=== PATIENT | male | born 1955 | race Caucasian/White ===

== ENCOUNTER 2017-06-08 20:02 | Emergency (ER) | payer OTHER ==
[~2017-06-08] VITALS: Ht 182.9 cm; Wt 97.7 kg
[~2017-06-08 20:02] MED LIST: DUTA1CPM PO
[2017-06-08 20:14] VITALS: BP 184/98; PULSE 80; RESP 26; O2SAT 98
[2017-06-08] MEDS ORDERED: 0.9% Sodium Chloride 1,000 ML IV ONE (20:36)
--- NOTE | 2017-06-08 20:36 | ED.REPORT ---
HPI-Abd Pain M 40 and Over Date of Service Jun 08, 2017 ED Provider: Dr. Hinds Pt is a 61 y/o male w/ a hx of kidney stones presenting to the ED with his c/o sudden onset intermittent L flank pain which began at 19:00 today. At 19:30 today he experienced sudden onset of severe left flank pain with associated nausea and vomiting. Pt denies fever, chills. Nursing Notes Stated Complaint: POSS KIDNEY STONE Chief Complaint: Male Abdominal Pain Nursing Notes Reviewed: Yes Allergies: Coded Allergies: No Known Allergies (Verified Allergy, Unknown, 12/31/14) Scheduled Dutasteride/Tamsulosin 0.5-0.4 mg (Zina 0.5-0.4 mg) 1 Each Cpmp.24hr 1 EACH PO DAILY Tamsulosin (Flomax) 0.4 Mg Capsule 0.4 MG PO DAILY Scheduled PRN Hydrocodone-Acetaminophen 5-325 mg (Hydrocodone-Acetaminophen 5-325 mg) 1 Each Tablet 1-2 TABLET PO Q4H PRN PRN For Pain Ondansetron ODT (Zofran ODT) 4 Mg Tablet 4 MG PO Q4H PRN PRN For Nausea General Time Seen by MD: 20:35 Chief Complaint Flank pain left Hx Obtained From: Patient Arrived By: Walk-in Sudden in Onset?: Yes Onset Occurred: 1 - 4 hours ago Symptom Duration: Intermittent Progression since Onset: Intermittent Location: : Flank left Quality: Painful Severity: Current: Mild Severity: Maximum: Severe Recent Healthcare: Previous diagnosis Similar Sx Previous: Yes Past Medical History Past Medical History Nephrolithiasis GERD RA Diverticulosis Past Surgical History None reported Smoking History Never Smoker Social History Alcohol Use: Denies alcohol use Drug Use: Denies drug use Other Social History: Ambulatory Status Independent Review of Systems Constitutional: Denies: Chills, Fever GI: Reports: Nausea, Vomiting, Denies: Abdominal pain Male: Reports Flank pain Complete sys rev & neg: except as marked. Physical Exam Initial Vital Signs Vital Signs (First) Date Time Temp Pulse Resp B/P Pulse Ox O2 Delivery O2 Flow Rate FiO2 06/08/17 20:14 35.3 80 26 184/98 98 Room Air Initial VS: Reviewed, Vital signs abnormal Head / Eyes: Atraumatic, Normocephalic ENT: Mucous membranes moist, Conjunctiva normal, No scleral icterus Neck: Supple, Full range of motion Extremities: Vascular intact, Neuro intact Skin: Warm, Dry, No cyanosis Neurologic: Alert, Oriented, Nonfocal Psychiatric: Mood/affect normal, Behavior normal, Normal thought content General/Constitutional: Awake, Alert, No acute distress, Cooperative, Not toxic appearing Respiratory / Chest: Breath sounds NL, Breath sounds = bilat, No respiratory distress, No rales, No rhonchi, No wheezing Cardiovascular: Heart rate NL, Regular rhythm, Heart sounds NL, No murmurs Abdomen: Atraumatic, Soft, Non-tender, No guarding, No rebound, No distention Back: Full range of motion, Painless range of motion Left-sided CVA tenderness to percussion Interpretation & Diagnostics Lab Results Interpretation Result Diagram: 06/08/17205406/08/172054 Test 06/08/17 20:43 06/08/17 20:55 06/08/17 21:17 Urine Color Yellow (YELLOW) Urine Appearance Hazy (CLEAR,HAZY) Urine pH 6.5 (5.0-8.0) Urine Specific [place] <1.005 (1.003-1.035) Urine Protein Negativemg/dL (NEG,TRACE) Urine Glucose (UA) Negativemg/dL (NEGATIVE) Urine Ketones Negativemg/dL (NEGATIVE) Urine Occult Blood Large (NEGATIVE) Urine Nitrite Negative (NEGATIVE) Urine Bilirubin Negative (NEGATIVE) Urine Urobilinogen Normalmg/dL (NORMAL) Urine Leukocyte Esterase Negative (NEGATIVE) Urine RBC 11-50/hpf (0-2) Urine WBC 0-5/hpf (0-5) Urine Epithelial Cells Occasional/hpf (NONE-MOD) Urine Crystals None seen (NONE SEEN) Urine Bacteria None/hpf (NONE-FEW) Urine Hyaline Casts None/lpf (NONE) Urine Granular Casts None seen (NONE SEEN) Urine Waxy Casts None seen (NONE SEEN) Urine Red Blood Cell Casts None seen (NONE SEEN) Urine White Blood Cell Casts None seen (NONE SEEN) Urine Mucus None seen (None Seen) Urine Trichomonas None seen (NONE SEEN) Urine Yeast None (NONE SEEN) Urinalysis Comment None Urine Culture Reflexed Not indicated White Blood Count 10.8th/mm3 (3.8-10.1) Red Blood Count 5.19mil/mm3 (4.40-5.80) Hemoglobin 15.0g/dL (13.8-17.2) Hematocrit 44.9% (41.0-50.0) Mean Corpuscular Volume 86.5fL (81-100) Mean Corpuscular Hemoglobin 28.9pg (27.0-35.0) Mean Corpuscular Hemoglobin Concent 33.4% (32.0-37.0) Red Cell Distribution Width 13.6% (12.3-15.4) Platelet Count 300bil/L (150-400) Neutrophils (%) (Auto) 76.7% (40-74) Lymphocytes (%) (Auto) 11.3% (14-46) Monocytes (%) (Auto) 8.5% (4-12) Eosinophils (%) (Auto) 2.9% (0-5) Basophils (%) (Auto) 0.2% (0-3) Sodium Level 138mEq/L (134-144) Potassium Level 4.1mEq/L (3.5-5.2) Chloride Level 101mEq/L (97-108) Carbon Dioxide Level 22mmol/L (18-29) Blood Urea Nitrogen 18mg/dL (8-27) Creatinine 0.88mg/dL (0.76-1.27) Estimat Glomerular Filtration Rate 94mL/min (>59) Glucose Level 107mg/dL (60-99) Calcium Level 8.8mg/dL (8.5-10.1) Magnesium Level 1.9mg/dL (1.6-2.6) Total Bilirubin 0.2mg/dL (0.0-1.2) Aspartate Amino Transf (AST/SGOT) 22U/L (0-50) Alanine Aminotransferase (ALT/SGPT) 19U/L (0-44) Alkaline Phosphatase 80U/L (25-160) Total Protein 7.4g/dL (6.4-8.4) Albumin 4.0g/dL (3.4-5.0) Lipase 39U/L (13-60) Lactic Acid Level 1.7mmol/L (0.4-2.0) CT Abd / Pelvis Interpretation KUB study: IMPRESSION: 1. Nephrolithiasis of the left kidney. There is a 4 mm stone near the left UVJ within the bladder, probably a recently passed stone. There is trace left pelviectasis and mild perinephric stranding. 2. Mild concentric thickening in the distal esophagus at the gastroesophageal junction. This finding may be secondary to gastroesophageal reflux. If clinical indicated, upper endoscopy may be obtained for further evaluation. 3. Diverticulosis. No evidence for acute diverticulitis. 4. Enlarged prostate. Dictated by: Ryan Hill M.D. on 06/08/2017 at 20:58 Approved by: Ryan Hill M.D. on 06/08/2017 at 21:06 Study type: Abdominal CT no contrast Interpretation / Wet Read by: Interpret - Radiologist Re-Eval/Medical Decision Med Decision/Clinical Course 61-year-old male with a history of kidney stones presenting with similar symptoms of left flank pain had begun suddenly this evening. His symptoms seemed to improve just after arriving in the emergency department, prior to his CT scan. CT scan demonstrates a 4 mm recently passed kidney stone into the bladder, which explains why his pain has improved. There were several other incidental findings on the CT scan that shows some thickening of the lower esophagus, and enlarged prostate, and diverticulosis. The patient notes that he suffers from GERD but does not take medication. He is unaware of any lower urinary tract symptoms related to his prostate. He was also unaware of diverticulosis. I discussed these briefly with him and he will will establish with a new PCP to help follow up on these chronic findings, as well as to follow up on his acute issue today. Despite the fact the stone was passed I elected to start him on Flomax to aid in passing the stone through the urethra. I also discharged home with a small amount of pain medication to help with any recurrent pain, and some Zofran for nausea. Patient is understanding and in agreement of the plan for follow-up. Time of Eval: 21:39 Re-Evaluation/Progress Note: Pt rechecked. Informed pt of plan for discharge. Pt understands and agrees with plan for discharge. F/U instructions and RTER warnings given. All questions addressed. Counseled Regarding: Diagnosis, Lab results, Need for follow-up, When/why to return to ED Discharge & Departure Primary Impression: Left ureteral calculus Additional Impressions: Esophagitis Diverticulosis Diverticulosis site: unspecified location Diverticulosis bleeding: diverticulosis without bleeding Qualified Code: K57.90 - Diverticulosis of intestine, part unspecified, without perforation or abscess without bleeding Prostate enlargement Leukocytosis Leukocytosis type: unspecified Qualified Code: D72.829 - Elevated white blood cell count, unspecified Elevated blood pressure reading Acute pain Disposition: Home Vital Signs - All Vital Signs Date Time Temp Pulse Resp B/P Pulse Ox O2 Delivery O2 Flow Rate FiO2 06/08/17 22:26 36.4 82 16 151/92 99 Room Air 06/08/17 22:22 82 16 151/92 99 Room Air 06/08/17 20:14 35.3 80 26 184/98 98 Room Air )( All Prior VS Reviewed: Yes Condition: Improved Patient Instructions: Kidney Stones (ED) Additional Instructions: The CT scan showed evidence that you recently passed a 4mm kidney stone from your left ureter. You coincidentally have some esophagus thickening which is sometimes seen in the presence of gastric reflux. You also have diverticulosis which is a benign finding. The prostate was mildly enlarged. The labs were reassuring. The urine showed no sign of infection. Take Flomax as directed. Take Ibuprofen as needed for aching pain. If you experience severe or breakthrough pain you can take hydrocodone 5/325 one to 2 tablets every [address] or consume alcohol while taking hydrocodone. Follow-up with a primary care provider in 1 week for a recheck. Alejandro Byrd will be happy to see you. Return to the emergency department if you experience severe pain, fever, persistent vomiting, or for other concerning symptoms. Referrals: Alejandro Davidson PA-C Scribe Attestation Portions of this note were transcribed by Samuel Lowe. I, Dr. Hinds personally performed the history, physical exam and medical decision-making; I reviewed and confirmed the accuracy of the information in the transcribed note. copies to: Alejandro Davidson PA-C, Gary R DO Jun 08, 2017 20:36 SAMUEL LOWE Jun 08, 2017 20:43
[2017-06-08] MEDS ORDERED: Ondansetron 2 mg/mL 2 mL Inj IVPUSH PRN (20:40)
[2017-06-08] MEDS ORDERED: HYDROmorphone 0.5 mg/0.5 mL iSecure Syringe IVPUSH PRN (20:40)
[2017-06-08 20:59] LABS: APPEARANCE,URINE HAZY (CLEAR,HAZY); COLOR,URINE YELLOW (YELLOW); OCCULT BLOOD,URINE LARGE (NEGATIVE); PH,URINE 6.5 (5.0-8.0); UROBILINOGEN,URINE NORMAL (NORMAL)
[2017-06-08 21:04] LABS: BASOPHILS % (AUTO) 0.2 % (0-3); EOSINOPHILS % (AUTO) 2.9 % (0-5); MONOCYTES % (AUTO) 8.5 % (4-12); Mean Corpuscular Hemoglobin 28.9 pg (27.0-35.0); Mean Corpuscular Volume 86.5 fL (81-100); NEUTROPHILS % (AUTO) 76.7 % (40-74); Platelet Count 300 bil/L (150-400)
--- NOTE | 2017-06-08 21:08 | DRSVH ---
PROCEDURE: CT KUB ([id number]) INDICATIONS: severe abd pain, h/o kidney stones TECHNIQUE: Noncontrast 5 mm thick sections acquired from the diaphragms to the symphysis. 5 mm thick coronal an d sagittal reformats were then performed. For radiation dose reduction, the following was used: aut omated exposure control, adjustment of mA and/or kV according to patient size. COMPARISON: [facility], CT, KUB - CT ([facility] [place] 11/21/2014, 15:32. FINDINGS: Image quality: Excellent. Lung bases: Lung bases are clear. Heart size is normal. There is a small hiatal hernia. Mild concen tric thickening of distal esophagus at the GE junction. Urinary system: There are multiple left renal calculi. The largest stone measures [address] densi ty 489 HU, probably a uric acid stone or struvite stone. There is trace pelviectasis in left kidney a nd mild left perinephric stranding. There is a 4 mm stone within the urinary bladder near the left UV J, probably recently passed stone. Both kidneys are normal in size. Prostate is enlarged. Other solid organs: Liver and spleen are normal in size. Gallbladder is normal. Pancreas is normal in contours. No adrenal nodules. Peritoneum and bowel: Unenhanced bowel loops demonstrate normal wall thickness and caliber. No free fluid or air. Nodes and vessels: No retroperitoneal or mesenteric adenopathy by size criteria. Aorta and inferior vena cava are normal in caliber. Abdominal wall: No ventral hernias. Pelvis: No free pelvic fluid. No inguinal hernias or adenopathy. Bones: No suspicious bony lesions. No vertebral body compression fractures. IMPRESSION: 1. Nephrolithiasis of the left kidney. There is a 4 mm stone near the left UVJ within the bladder, pr obably a recently passed stone. There is trace left pelviectasis and mild perinephric stranding. 2. Mild concentric thickening in the distal esophagus at the gastroesophageal junction. This finding may be secondary to gastroesophageal reflux. If clinical indicated, upper endoscopy may be obtained f or further evaluation. 3. Diverticulosis. No evidence for acute diverticulitis. 4. Enlarged prostate. Dictated by: Ryan Hill M.D. on 06/08/2017 at 20:58 Approved by: Ryan Hill M.D. on 06/08/2017 at 21:06
[2017-06-08 21:24] LABS: Magnesium 1.9 mg/dL (1.6-2.6)
[2017-06-08] MEDS ORDERED: _HYDROcodone/APAP 5-325 mg Tablet PO PRN (21:50)
[2017-06-08] MEDS ORDERED: TAMS0.4C98 PO (21:51)
[2017-06-08] MEDS ORDERED: HYDR-4003 PO (21:51)
[2017-06-08] MEDS ORDERED: ONDA4TAB9 PO (21:51)
[2017-06-08 22:22] VITALS: BP 151/92; PULSE 82; RESP 16; O2SAT 99
[2017-06-08 22:26] VITALS: BP 151/92; PULSE 82; RESP 16; O2SAT 99
== END 2017-06-08 22:26 | disposition home or self-care (01) ==
LOC: SED 20:02
DX: N20.1 Calculus of ureter (principal); K20.9 Esophagitis, unspecified; K57.90 Diverticulosis of intestine, part unspecified, without perforation or abscess without bleeding; N40.0 Benign prostatic hyperplasia without lower urinary tract symptoms; D72.829 Elevated white blood cell count, unspecified; R03.0 Elevated blood-pressure reading, without diagnosis of hypertension; R11.2 Nausea with vomiting, unspecified; Z79.891 Long term (current) use of opiate analgesic; K21.9 Gastro-esophageal reflux disease without esophagitis; Z87.442 Personal history of urinary calculi; R52 Pain, unspecified
CPT/HCPCS: 36415; 74176; 80053; 81000; 83605; 83690; 83735; 85025; 96361; 96374; 96375; 99285; J1885; J2405; J7030